=== PATIENT | male | born 1980 | race Caucasian/White ===

== ENCOUNTER 2018-12-28 17:05 | Emergency (ER) | payer SELFPAY ==
[~2018-12-28] VITALS: Ht 180.3 cm; Wt 95.0 kg
[2018-12-28] MEDS ORDERED: HYDROcodone/acetaminophen 5mg/325mg tablet PO ONE (17:40)
[2018-12-28] MEDS ORDERED: ondansetron 4mg rapidly disintigrating tab PO ONE (17:40)
[2018-12-28] MEDS ORDERED: normal saline 1000ml 1,000 ML IV ONE (17:40)
[2018-12-28] MEDS ORDERED: iohexol 300mg/ml 100ml inj. ONE (17:53)
--- NOTE | 2018-12-28 17:57 | NUR ---
pt to CT
--- NOTE | 2018-12-28 18:05 | NUR ---
pt back from [place]
[2018-12-28 18:10] VITALS: BP 148/90
[2018-12-28 18:15] LABS: BASOPHILS % (AUTO) 0.1 % (0-1); EOSINOPHILS # (AUTO) 0.1 X10'3 (0-0.9); EOSINOPHILS % (AUTO) 0.7 % (0-6); HEMATOCRIT 49.4 % (42.0-52.0); LYMPHOCYTES # (AUTO) 1.2 X10'3 (1.1-4.8); LYMPHOCYTES % (AUTO) 15.6 % (21-51); MEAN CORPUSCULAR HEMOGLOBIN 30.7 PG (27.0-31.0); MEAN CORPUSCULAR HGB CONC 34.4 g/dL (33.0-36.5); MEAN CORPUSCULAR VOLUME 89.4 FL (78-98); MEAN PLATELET VOLUME 8.1 FL (7.4-10.4); MONOCYTES # (AUTO) 0.4 X10'3 (0-0.9); MONOCYTES % (AUTO) 5.9 % (2-12); NEUTROPHILS # (AUTO) 5.8 X10'3 (1.8-7.7); NEUTROPHILS % (AUTO) 77.7 % (42-75); PLATELET COUNT 178 X10'3 (140-440); RED BLOOD COUNT 5.53 X10'6 (4.70-6.10); RED CELL DISTRIBUTION WIDTH 15.7 % (11.5-14.5); WHITE BLOOD COUNT 7.4 X10'3 (4.5-11.0)
[2018-12-28 18:19] LABS: ALANINE AMINOTRANSFERASE 47 U/L (12-78); ALBUMIN 4.2 G/DL (3.4-5.0); ALBUMIN/GLOBULIN RATIO 1.2 (1.1-1.5); ALKALINE PHOSPHATASE 46 IU/L (46-116); ANION GAP 7 (8-16); ASPARTATE AMINO TRANSFERASE 48 U/L (10-37); BILIRUBIN,TOTAL 0.7 MG/DL (0.1-1.0); BLOOD UREA NITROGEN 21 MG/DL (7-18); BUN/CREATININE RATIO 19.1 (5.4-32.0); CALCIUM 9.5 MG/DL (8.5-10.1); CHLORIDE 103 MMOL/L (99-107); GLUCOSE 102 MG/DL (70-104); SODIUM 141 MMOL/L (135-145); TOTAL CARBON DIOXIDE 31.4 MMOL/L (24-32); TOTAL PROTEIN 7.8 G/DL (6.4-8.2); eGFR 75 ML/MIN
[2018-12-28] MEDS ORDERED: TETanus/Pertussis (Acell)/Diphther VAC/PF (Tdap-Adult) 0.5ml syringe IM ONE (19:05)
[2018-12-28] MEDS ORDERED: bacitracin 15gm ointment TP ONE (19:05)
[2018-12-28] MEDS ORDERED: HYDR-3965 PO (19:09)
[2018-12-28] MEDS ORDERED: ketorolac trometh. 30mg/ml inj. IV ONE (19:10)
== END 2018-12-28 20:08 | disposition home or self-care (01) ==
LOC: ER 17:05
DX: S42.91XA Fracture of right shoulder girdle, part unspecified, initial encounter for closed fracture (principal); S61.211A Laceration without foreign body of left index finger without damage to nail, initial encounter; S61.213A Laceration without foreign body of left middle finger without damage to nail, initial encounter; S10.81XA Abrasion of other specified part of neck, initial encounter; S00.81XA Abrasion of other part of head, initial encounter; Z79.899 Other long term (current) drug therapy; W31.89XA Contact with other specified machinery, initial encounter; Y93.89 Activity, other specified; Y92.89 Other specified places as the place of occurrence of the external cause; Y99.8 Other external cause status
CPT/HCPCS: 36415; 71046; 71260; 73030; 80053; 85025; 90471; 90715; 96374; 99284; J1885; J7030; Q9967

== ENCOUNTER 2021-03-25 09:01 | Outpatient (CLI) | payer BC ==
[2021-03-25 10:37] LABS: ALANINE AMINOTRANSFERASE 51 U/L (12-78); ALBUMIN 3.8 G/DL (3.4-5.0); ALBUMIN/GLOBULIN RATIO 1.2 (1.1-1.5); ALKALINE PHOSPHATASE 48 IU/L (46-116); ANION GAP 8 (8-16); ASPARTATE AMINO TRANSFERASE 30 U/L (10-37); BILIRUBIN,TOTAL 0.5 MG/DL (0.1-1.0); BLOOD UREA NITROGEN 19 MG/DL (7-18); BUN/CREATININE RATIO 20.7 (5.4-32.0); CALCIUM 9.1 MG/DL (8.5-10.1); CHLORIDE 103 MMOL/L (99-107); CHOL/HDL RATIO 5.5 (0.00-4.99); CHOLESTEROL 169 MG/DL (0-200); CREATININE 0.92 MG/DL (0.60-1.10); GLUCOSE 114 MG/DL (70-104); HDL CHOLESTEROL 31 MG/DL (35-60); LDL CHOLESTEROL 80 MG/DL (50-100); POTASSIUM 4.1 MMOL/L (3.5-5.1); SODIUM 142 MMOL/L (135-145); TOTAL PROTEIN 6.9 G/DL (6.4-8.2); TRIGLYCERIDES 232 MG/DL (20-135); eGFR > 90 ML/MIN
== END 2021-03-25 23:59 | disposition home or self-care (01) ==
LOC: RAD 09:01
PROVIDERS: ATTEND Physician Assistant
DX: Z13.220 Encounter for screening for lipoid disorders (principal); M25.461 Effusion, right knee; R53.83 Other fatigue; Z83.3 Family history of diabetes mellitus
CPT/HCPCS: 36415; 73560; 80053; 80061; 84402; 84403

== ENCOUNTER 2021-04-22 08:45 | Outpatient (CLI) | payer BC | END 2021-04-22 23:59 | disposition home or self-care (01) | LOC: RAD 08:45 | PROVIDERS: ATTEND Physician Assistant | DX: S83.511A Sprain of anterior cruciate ligament of right knee, initial encounter (principal); S83.211A Bucket-handle tear of medial meniscus, current injury, right knee, initial encounter; M22.41 Chondromalacia patellae, right knee; M25.461 Effusion, right knee; X58.XXXA Exposure to other specified factors, initial encounter; Y93.89 Activity, other specified; Y92.89 Other specified places as the place of occurrence of the external cause; Y99.8 Other external cause status | CPT/HCPCS: 73721 ==

== ENCOUNTER 2021-05-17 21:59 | Emergency (ER) | payer BC ==
[~2021-05-17] VITALS: Ht 180.3 cm; Wt 97.7 kg
[2021-05-17 23:03] LABS: BASOPHILS % (AUTO) 0.3 % (0-1); HEMATOCRIT 44.7 % (42.0-52.0); HEMOGLOBIN 15.3 g/dl (14.0-17.9); LYMPHOCYTES # (AUTO) 1.3 X10'3 (1.1-4.8); LYMPHOCYTES % (AUTO) 51.5 % (21-51); MEAN CORPUSCULAR HEMOGLOBIN 31.3 PG (27.0-31.0); MEAN CORPUSCULAR HGB CONC 34.3 g/dL (33.0-36.5); MEAN CORPUSCULAR VOLUME 91.4 FL (78-98); MEAN PLATELET VOLUME 6.9 FL (7.4-10.4); MONOCYTES # (AUTO) 0.1 X10'3 (0-0.9); MONOCYTES % (AUTO) 5.6 % (2-12); NEUTROPHILS % (AUTO) 40.6 % (42-75); PLATELET COUNT 139 X10'3 (140-440); RED BLOOD COUNT 4.89 X10'6 (4.70-6.10); RED CELL DISTRIBUTION WIDTH 16.3 % (11.5-14.5); WHITE BLOOD COUNT 2.5 X10'3 (4.5-11.0)
[2021-05-17] MEDS ORDERED: iohexol 300mg/ml 100ml inj. ONE (23:20)
[2021-05-17 23:27] LABS: ALANINE AMINOTRANSFERASE 42 U/L (12-78); ALBUMIN 3.8 G/DL (3.4-5.0); ALBUMIN/GLOBULIN RATIO 1.1 (1.1-1.5); ALKALINE PHOSPHATASE 42 IU/L (46-116); ANION GAP 7 (8-16); ASPARTATE AMINO TRANSFERASE 27 U/L (10-37); BILIRUBIN,TOTAL 0.8 MG/DL (0.1-1.0); BLOOD UREA NITROGEN 19 MG/DL (7-18); BUN/CREATININE RATIO 20.4 (5.4-32.0); CALCIUM 8.7 MG/DL (8.5-10.1); CHLORIDE 101 MMOL/L (99-107); CREATININE 0.93 MG/DL (0.60-1.10); GLUCOSE 98 MG/DL (70-104); POTASSIUM 3.9 MMOL/L (3.5-5.1); SODIUM 139 MMOL/L (135-145); TOTAL PROTEIN 7.3 G/DL (6.4-8.2); eGFR 90 ML/MIN
[2021-05-18 00:51] VITALS: BP 128/78
== END 2021-05-18 00:54 | disposition home or self-care (01) ==
LOC: ER 22:00
DX: D61.818 Other pancytopenia (principal); M54.9 Dorsalgia, unspecified
CPT/HCPCS: 71045; 71260; 74177; 80053; 85025; 99285; Q9967

== ENCOUNTER 2021-05-22 11:39 | Outpatient (CLI) | payer BC | END 2021-05-22 23:59 | disposition home or self-care (01) | LOC: LAB 11:39 | PROVIDERS: ATTEND Physician Assistant | DX: E04.1 Nontoxic single thyroid nodule (principal); R53.83 Other fatigue | CPT/HCPCS: 36415; 84439; 84443 ==

== ENCOUNTER → 2021-05-25 | Outpatient (CLI) | payer BC | END | disposition home or self-care (01) | LOC: RAD 08:37 | PROVIDERS: ATTEND Physician Assistant | DX: M51.34 Other intervertebral disc degeneration, thoracic region (principal) | CPT/HCPCS: 72146 ==

== ENCOUNTER 2022-09-28 11:08 | Outpatient (CLI) | payer BC | END 2022-09-28 23:59 | disposition home or self-care (01) | LOC: RAD 11:08 | PROVIDERS: ATTEND Internal Medicine Hematology & Oncology | DX: D72.819 Decreased white blood cell count, unspecified (principal) | CPT/HCPCS: 76700 ==

== ENCOUNTER → 2023-04-28 | Outpatient (CLI) | payer BC ==
[2023-04-28 17:08] LABS: HEMOGLOBIN 14.4 g/dl (14.0-17.9); LYMPHOCYTES # (AUTO) 1.2 X10'3 (1.1-4.8); MONOCYTES # (AUTO) 0.3 X10'3 (0-0.9); NEUTROPHILS # (AUTO) 1.2 X10'3 (1.8-7.7); RED BLOOD COUNT 4.61 X10'6 (4.70-6.10); WHITE BLOOD COUNT 2.7 X10'3 (4.5-11.0)
[2023-04-28 17:10] LABS: BASOPHILS % (AUTO) 0.2 % (0-1); EOSINOPHILS % (AUTO) 0.5 % (0-6); HEMATOCRIT 43.2 % (42.0-52.0); LYMPHOCYTES % (AUTO) 45.9 % (21-51); MEAN CORPUSCULAR HEMOGLOBIN 31.1 PG (27.0-31.0); MEAN CORPUSCULAR HGB CONC 33.2 g/dL (33.0-36.5); MEAN CORPUSCULAR VOLUME 93.6 FL (78-98); MEAN PLATELET VOLUME 8.2 FL (7.4-10.4); MONOCYTES % (AUTO) 10.7 % (2-12); NEUTROPHILS % (AUTO) 42.7 % (42-75); PLATELET COUNT 62 X10'3 (140-440); RED CELL DISTRIBUTION WIDTH 19.4 % (11.5-14.5)
[2023-04-28 17:46] LABS: ALANINE AMINOTRANSFERASE 59 U/L (12-78); ALBUMIN 3.9 G/DL (3.4-5.0); ALBUMIN/GLOBULIN RATIO 1.1 (1.1-1.5); ALKALINE PHOSPHATASE 37 IU/L (46-116); ANION GAP 9 (8-16); ASPARTATE AMINO TRANSFERASE 48 U/L (10-37); BILIRUBIN,TOTAL 0.9 MG/DL (0.1-1.0); BLOOD UREA NITROGEN 16 MG/DL (7-18); BUN/CREATININE RATIO 14.8 (10.0-20.0); CALCIUM 7.9 MG/DL (8.5-10.1); CHLORIDE 103 MMOL/L (99-107); CREATININE 1.08 MG/DL (0.60-1.10); GLUCOSE 88 MG/DL (70-104); POTASSIUM 3.9 MMOL/L (3.5-5.1); SODIUM 140 MMOL/L (135-145); TOTAL CARBON DIOXIDE 28.2 MMOL/L (24-32); TOTAL PROTEIN 7.3 G/DL (6.4-8.2); URIC ACID 4.8 MG/DL (3.5-7.2); eGFR 75 ML/MIN
[2023-04-28 18:14] LABS: TOTAL CELLS COUNTED 100
[2023-04-28 18:19] LABS: ANISOCYTOSIS 2+; PLATELET ESTIMATE DECREASED; POLYCHROMASIA FEW
== END | disposition home or self-care (01) ==
LOC: LAB 15:49
PROVIDERS: ATTEND Internal Medicine Medical Oncology
DX: C91.40 Hairy cell leukemia not having achieved remission (principal)
CPT/HCPCS: 36415; 80053; 84550; 85007; 85025

== ENCOUNTER → 2023-06-09 | Day surgery (SDC) | payer BC ==
[2023-06-09 11:07] LABS: WHITE BLOOD COUNT 2.5 X10'3 (4.5-11.0)
[2023-06-09 11:09] LABS: BASOPHILS % (AUTO) 0.6 % (0-1); EOSINOPHILS % (AUTO) 0.4 % (0-6); HEMOGLOBIN 15.1 g/dl (14.0-17.9); LYMPHOCYTES % (AUTO) 41.6 % (21-51); MEAN CORPUSCULAR HEMOGLOBIN 30.6 PG (27.0-31.0); MEAN CORPUSCULAR VOLUME 92.7 FL (78-98); MEAN PLATELET VOLUME 7.3 FL (7.4-10.4); MONOCYTES # (AUTO) 0.3 X10'3 (0-0.9); MONOCYTES % (AUTO) 12.2 % (2-12); NEUTROPHILS # (AUTO) 1.1 X10'3 (1.8-7.7); NEUTROPHILS % (AUTO) 45.2 % (42-75); PLATELET COUNT 54 X10'3 (140-440); RED BLOOD COUNT 4.96 X10'6 (4.70-6.10); RED CELL DISTRIBUTION WIDTH 19.6 % (11.5-14.5)
[2023-06-09 11:33] LABS: ANISOCYTOSIS 2+; PLATELET ESTIMATE DECREASED; POLYCHROMASIA FEW; TOTAL CELLS COUNTED 100
[2023-06-09 11:35] LABS: ALANINE AMINOTRANSFERASE 50 U/L (12-78); ALBUMIN 3.8 G/DL (3.4-5.0); ALKALINE PHOSPHATASE 40 IU/L (46-116); ANION GAP 8 (8-16); ASPARTATE AMINO TRANSFERASE 40 U/L (10-37); BLOOD UREA NITROGEN 12 MG/DL (7-18); BUN/CREATININE RATIO 10.9 (10.0-20.0); CALCIUM 9.1 MG/DL (8.5-10.1); CHLORIDE 102 MMOL/L (99-107); GLUCOSE 120 MG/DL (70-104); POTASSIUM 4.5 MMOL/L (3.5-5.1); SODIUM 140 MMOL/L (135-145); TOTAL CARBON DIOXIDE 30.2 MMOL/L (24-32); TOTAL PROTEIN 7.6 G/DL (6.4-8.2); eGFR 74 ML/MIN
== END | disposition home or self-care (01) ==
LOC: SSTAY O 08:35
PROVIDERS: ATTEND Internal Medicine Medical Oncology
DX: C91.40 Hairy cell leukemia not having achieved remission (principal)
CPT/HCPCS: 36415; 36569; 36573; 76942; 80053; 85007; 85025

== ENCOUNTER → 2023-06-10 | Outpatient (CLI) | payer BC | END | disposition home or self-care (01) | LOC: LAB 16:14 | PROVIDERS: ATTEND Internal Medicine Medical Oncology | DX: Z11.59 Encounter for screening for other viral diseases (principal); C91.40 Hairy cell leukemia not having achieved remission; Z72.89 Other problems related to lifestyle | CPT/HCPCS: 36415; 84550; 86704; 86706; 87340; 87497 ==

== ENCOUNTER 2023-07-07 10:56 | Outpatient (CLI) | payer BC ==
[2023-07-07 11:15] LABS: BASOPHILS % (AUTO) 0.3 % (0-1); EOSINOPHILS % (AUTO) 0.9 % (0-6); HEMATOCRIT 39.3 % (42.0-52.0); LYMPHOCYTES # (AUTO) 0.5 X10'3 (1.1-4.8); LYMPHOCYTES % (AUTO) 35.6 % (21-51); MEAN CORPUSCULAR HEMOGLOBIN 31.5 PG (27.0-31.0); MEAN CORPUSCULAR HGB CONC 33.1 g/dL (33.0-36.5); MEAN CORPUSCULAR VOLUME 95.3 FL (78-98); MEAN PLATELET VOLUME 7.1 FL (7.4-10.4); MONOCYTES % (AUTO) 3.2 % (2-12); NEUTROPHILS # (AUTO) 0.8 X10'3 (1.8-7.7); PLATELET COUNT 95 X10'3 (140-440); RED BLOOD COUNT 4.12 X10'6 (4.70-6.10); RED CELL DISTRIBUTION WIDTH 20.5 % (11.5-14.5); WHITE BLOOD COUNT 1.3 X10'3 (4.5-11.0)
[2023-07-07 11:43] LABS: ANISOCYTOSIS 3+; NUCLEATED RED BLOOD CELLS 2 /100WBC (0-0); PLATELET ESTIMATE DECREASED; TOTAL CELLS COUNTED 100
[2023-07-07 11:51] LABS: ALANINE AMINOTRANSFERASE 74 U/L (12-78); ALBUMIN 3.7 G/DL (3.4-5.0); ALBUMIN/GLOBULIN RATIO 1.2 (1.1-1.5); ALKALINE PHOSPHATASE 43 IU/L (46-116); ANION GAP 7 (8-16); ASPARTATE AMINO TRANSFERASE 50 U/L (10-37); BILIRUBIN,TOTAL 0.8 MG/DL (0.1-1.0); BLOOD UREA NITROGEN 22 MG/DL (7-18); BUN/CREATININE RATIO 23.2 (10.0-20.0); CALCIUM 8.4 MG/DL (8.5-10.1); CHLORIDE 103 MMOL/L (99-107); CREATININE 0.95 MG/DL (0.60-1.10); GLUCOSE 100 MG/DL (70-104); POTASSIUM 4.4 MMOL/L (3.5-5.1); SODIUM 140 MMOL/L (135-145); TOTAL CARBON DIOXIDE 29.8 MMOL/L (24-32); TOTAL PROTEIN 6.7 G/DL (6.4-8.2); eGFR 87 ML/MIN
[2023-07-07 12:03] LABS: POLYCHROMASIA FEW; STOMATOCYTES FEW; TEAR DROP CELLS FEW
== END 2023-07-07 23:59 | disposition home or self-care (01) ==
LOC: LAB 10:56
PROVIDERS: ATTEND Internal Medicine
DX: C91.40 Hairy cell leukemia not having achieved remission (principal)
CPT/HCPCS: 36415; 80053; 85007; 85025

== ENCOUNTER 2023-07-15 17:06 | Emergency (ER) | payer BC ==
[2023-07-15 17:14] VITALS: BP 134/78; PULSE 74; RESP 18; O2SAT 98
[2023-07-15 18:27] LABS: ALANINE AMINOTRANSFERASE 70 U/L (12-78); ALBUMIN 3.8 G/DL (3.4-5.0); ALBUMIN/GLOBULIN RATIO 1.2 (1.1-1.5); ALKALINE PHOSPHATASE 40 IU/L (46-116); ANION GAP 6 (8-16); ASPARTATE AMINO TRANSFERASE 41 U/L (10-37); BILIRUBIN,TOTAL 0.8 MG/DL (0.1-1.0); BLOOD UREA NITROGEN 21 MG/DL (7-18); CALCIUM 8.5 MG/DL (8.5-10.1); CHLORIDE 103 MMOL/L (99-107); GLUCOSE 85 MG/DL (70-104); SODIUM 139 MMOL/L (135-145); TOTAL CARBON DIOXIDE 30.5 MMOL/L (24-32); TOTAL PROTEIN 7.1 G/DL (6.4-8.2); eGFR 82 ML/MIN
[2023-07-15 18:30] LABS: BASOPHILS % (AUTO) 0.7 % (0-1); EOSINOPHILS % (AUTO) 1.4 % (0-6); HEMOGLOBIN 13.3 g/dl (14.0-17.9); LYMPHOCYTES # (AUTO) 0.5 X10'3 (1.1-4.8); LYMPHOCYTES % (AUTO) 38.2 % (21-51); MEAN CORPUSCULAR HEMOGLOBIN 31.8 PG (27.0-31.0); MEAN CORPUSCULAR HGB CONC 33.2 g/dL (33.0-36.5); MEAN CORPUSCULAR VOLUME 95.9 FL (78-98); MEAN PLATELET VOLUME 7.2 FL (7.4-10.4); MONOCYTES # (AUTO) 0.1 X10'3 (0-0.9); MONOCYTES % (AUTO) 7.9 % (2-12); NEUTROPHILS # (AUTO) 0.7 X10'3 (1.8-7.7); NEUTROPHILS % (AUTO) 51.8 % (42-75); PLATELET COUNT 101 X10'3 (140-440); RED BLOOD COUNT 4.17 X10'6 (4.70-6.10); RED CELL DISTRIBUTION WIDTH 20.5 % (11.5-14.5); WHITE BLOOD COUNT 1.3 X10'3 (4.5-11.0)
[2023-07-15 20:51] LABS: PLATELET ESTIMATE DECREASED; TOTAL CELLS COUNTED 100
[2023-07-15 20:53] LABS: ANISOCYTOSIS 3+
[2023-07-15 20:56] LABS: POIKILOCYTOSIS 1+; POLYCHROMASIA FEW
[2023-07-15 20:57] LABS: ELLIPTOCYTES 1+; TEAR DROP CELLS FEW
== END 2023-07-15 20:10 | disposition home or self-care (01) ==
LOC: ER 17:06
DX: D61.818 Other pancytopenia (principal)
CPT/HCPCS: 36415; 80053; 85007; 85025; 99283

== ENCOUNTER 2023-07-22 10:52 | Outpatient (CLI) | payer BC ==
[2023-07-22 12:29] LABS: HEMOGLOBIN 14.4 g/dl (14.0-17.9); MEAN CORPUSCULAR VOLUME 97.1 FL (78-98)
[2023-07-22 12:31] LABS: BASOPHILS % (AUTO) 0.2 % (0-1); EOSINOPHILS % (AUTO) 1.4 % (0-6); LYMPHOCYTES # (AUTO) 0.4 X10'3 (1.1-4.8); LYMPHOCYTES % (AUTO) 20.6 % (21-51); MEAN CORPUSCULAR HEMOGLOBIN 31.9 PG (27.0-31.0); MEAN CORPUSCULAR HGB CONC 32.8 g/dL (33.0-36.5); MONOCYTES # (AUTO) 0.2 X10'3 (0-0.9); MONOCYTES % (AUTO) 11.6 % (2-12); NEUTROPHILS # (AUTO) 1.3 X10'3 (1.8-7.7); NEUTROPHILS % (AUTO) 66.2 % (42-75); PLATELET COUNT 111 X10'3 (140-440); RED BLOOD COUNT 4.53 X10'6 (4.70-6.10); RED CELL DISTRIBUTION WIDTH 20.4 % (11.5-14.5)
[2023-07-22 12:51] LABS: ALKALINE PHOSPHATASE 49 IU/L (46-116); ANION GAP 3 (8-16); BILIRUBIN,TOTAL 0.9 MG/DL (0.1-1.0); CHLORIDE 103 MMOL/L (99-107); SODIUM 139 MMOL/L (135-145); TOTAL CARBON DIOXIDE 32.7 MMOL/L (24-32); TOTAL PROTEIN 7.3 G/DL (6.4-8.2)
[2023-07-22 12:59] LABS: ALANINE AMINOTRANSFERASE 163 U/L (12-78); ALBUMIN 3.9 G/DL (3.4-5.0); ALBUMIN/GLOBULIN RATIO 1.1 (1.1-1.5); ASPARTATE AMINO TRANSFERASE 67 U/L (10-37); BLOOD UREA NITROGEN 18 MG/DL (7-18); BUN/CREATININE RATIO 18.8 (10.0-20.0); CALCIUM 8.6 MG/DL (8.5-10.1); CREATININE 0.96 MG/DL (0.60-1.10); GLUCOSE 88 MG/DL (70-104); eGFR 86 ML/MIN
[2023-07-22 13:29] LABS: TOTAL CELLS COUNTED 100
[2023-07-22 13:30] LABS: ANISOCYTOSIS 3+; ELLIPTOCYTES 1+; PLATELET ESTIMATE DECREASED; POIKILOCYTOSIS 1+; POLYCHROMASIA FEW; TEAR DROP CELLS FEW
[2023-07-22 13:31] LABS: STOMATOCYTES FEW
[2023-07-22 13:32] LABS: LYMPHOCYTES % (MANUAL) 23 % (21-51)
== END 2023-07-22 23:59 | disposition home or self-care (01) ==
LOC: LAB 10:52
PROVIDERS: ATTEND Internal Medicine
DX: C91.40 Hairy cell leukemia not having achieved remission (principal)
CPT/HCPCS: 80053; 85007; 85025

== ENCOUNTER → 2023-07-29 | Outpatient (CLI) | payer BC ==
[2023-07-29 09:05] LABS: BASOPHILS % (AUTO) 0.3 % (0-1); EOSINOPHILS % (AUTO) 1.2 % (0-6); HEMATOCRIT 45.5 % (42.0-52.0); HEMOGLOBIN 15.2 g/dl (14.0-17.9); LYMPHOCYTES # (AUTO) 0.4 X10'3 (1.1-4.8); LYMPHOCYTES % (AUTO) 15.1 % (21-51); MEAN CORPUSCULAR HEMOGLOBIN 31.8 PG (27.0-31.0); MEAN CORPUSCULAR HGB CONC 33.3 g/dL (33.0-36.5); MEAN CORPUSCULAR VOLUME 95.3 FL (78-98); MEAN PLATELET VOLUME 6.5 FL (7.4-10.4); MONOCYTES # (AUTO) 0.4 X10'3 (0-0.9); MONOCYTES % (AUTO) 12.8 % (2-12); NEUTROPHILS % (AUTO) 70.6 % (42-75); PLATELET COUNT 135 X10'3 (140-440); RED BLOOD COUNT 4.77 X10'6 (4.70-6.10); RED CELL DISTRIBUTION WIDTH 18.5 % (11.5-14.5); WHITE BLOOD COUNT 2.8 X10'3 (4.5-11.0)
[2023-07-29 09:20] LABS: ALANINE AMINOTRANSFERASE 78 U/L (12-78); ALBUMIN 3.7 G/DL (3.4-5.0); ALBUMIN/GLOBULIN RATIO 1.1 (1.1-1.5); ALKALINE PHOSPHATASE 46 IU/L (46-116); ANION GAP 3 (8-16); ASPARTATE AMINO TRANSFERASE 40 U/L (10-37); BILIRUBIN,TOTAL 1.3 MG/DL (0.1-1.0); BLOOD UREA NITROGEN 18 MG/DL (7-18); BUN/CREATININE RATIO 15.8 (10.0-20.0); CALCIUM 8.7 MG/DL (8.5-10.1); CHLORIDE 104 MMOL/L (99-107); CREATININE 1.14 MG/DL (0.60-1.10); GLUCOSE 91 MG/DL (70-104); POTASSIUM 3.9 MMOL/L (3.5-5.1); SODIUM 139 MMOL/L (135-145); TOTAL CARBON DIOXIDE 32.4 MMOL/L (24-32); TOTAL PROTEIN 7.1 G/DL (6.4-8.2); eGFR 71 ML/MIN
[2023-07-29 09:25] LABS: ANISOCYTOSIS 2+; ELLIPTOCYTES FEW; PLATELET ESTIMATE DECREASED; TEAR DROP CELLS FEW; TOTAL CELLS COUNTED 100
== END | disposition home or self-care (01) ==
LOC: LAB 08:34
PROVIDERS: ATTEND Internal Medicine Medical Oncology
DX: C91.40 Hairy cell leukemia not having achieved remission (principal)
CPT/HCPCS: 80053; 85007; 85025

== ENCOUNTER 2023-08-05 08:24 | Outpatient (CLI) | payer BC ==
[2023-08-05 08:59] LABS: BASOPHILS % (AUTO) 0.3 % (0-1); EOSINOPHILS # (AUTO) 0.1 X10'3 (0-0.9); EOSINOPHILS % (AUTO) 1.7 % (0-6); HEMOGLOBIN 15.1 g/dl (14.0-17.9); LYMPHOCYTES # (AUTO) 0.5 X10'3 (1.1-4.8); LYMPHOCYTES % (AUTO) 15.7 % (21-51); MEAN CORPUSCULAR HEMOGLOBIN 31.4 PG (27.0-31.0); MEAN CORPUSCULAR HGB CONC 32.9 g/dL (33.0-36.5); MEAN CORPUSCULAR VOLUME 95.6 FL (78-98); MEAN PLATELET VOLUME 7.3 FL (7.4-10.4); MONOCYTES # (AUTO) 0.4 X10'3 (0-0.9); NEUTROPHILS # (AUTO) 2.1 X10'3 (1.8-7.7); NEUTROPHILS % (AUTO) 70.3 % (42-75); PLATELET COUNT 159 X10'3 (140-440); RED BLOOD COUNT 4.82 X10'6 (4.70-6.10); RED CELL DISTRIBUTION WIDTH 18.1 % (11.5-14.5); WHITE BLOOD COUNT 2.9 X10'3 (4.5-11.0)
[2023-08-05 09:12] LABS: ALANINE AMINOTRANSFERASE 64 U/L (12-78); ALBUMIN 3.7 G/DL (3.4-5.0); ALBUMIN/GLOBULIN RATIO 1.1 (1.1-1.5); ALKALINE PHOSPHATASE 44 IU/L (46-116); ANION GAP 5 (8-16); ASPARTATE AMINO TRANSFERASE 39 U/L (10-37); BILIRUBIN,TOTAL 0.5 MG/DL (0.1-1.0); CHLORIDE 102 MMOL/L (99-107); CREATININE 0.93 MG/DL (0.60-1.10); GLUCOSE 103 MG/DL (70-104); SODIUM 137 MMOL/L (135-145); TOTAL CARBON DIOXIDE 29.9 MMOL/L (24-32); TOTAL PROTEIN 7.2 G/DL (6.4-8.2); eGFR 90 ML/MIN
[2023-08-05 09:24] LABS: BLOOD UREA NITROGEN 18 MG/DL (7-18); BUN/CREATININE RATIO 19.4 (10.0-20.0)
[2023-08-05 11:50] LABS: TOTAL CELLS COUNTED 100
[2023-08-05 11:51] LABS: ANISOCYTOSIS 2+; ELLIPTOCYTES FEW; PLATELET ESTIMATE NORMAL; TEAR DROP CELLS FEW
== END 2023-08-05 23:59 | disposition home or self-care (01) ==
LOC: LAB 08:24
PROVIDERS: ATTEND Internal Medicine Hematology & Oncology
DX: C91.40 Hairy cell leukemia not having achieved remission (principal)
CPT/HCPCS: 80053; 85007; 85025

== ENCOUNTER → 2023-08-12 | Outpatient (CLI) | payer BC ==
[2023-08-12 09:18] LABS: BASOPHILS % (AUTO) 0.1 % (0-1); HEMOGLOBIN 15.9 g/dl (14.0-17.9); LYMPHOCYTES # (AUTO) 0.4 X10'3 (1.1-4.8); LYMPHOCYTES % (AUTO) 9.9 % (21-51); MEAN CORPUSCULAR HEMOGLOBIN 31.6 PG (27.0-31.0); MEAN CORPUSCULAR HGB CONC 33.2 g/dL (33.0-36.5); MEAN CORPUSCULAR VOLUME 95.3 FL (78-98); MEAN PLATELET VOLUME 7.2 FL (7.4-10.4); MONOCYTES # (AUTO) 0.4 X10'3 (0-0.9); MONOCYTES % (AUTO) 9.4 % (2-12); NEUTROPHILS # (AUTO) 3.6 X10'3 (1.8-7.7); NEUTROPHILS % (AUTO) 79.6 % (42-75); PLATELET COUNT 134 X10'3 (140-440); RED BLOOD COUNT 5.04 X10'6 (4.70-6.10); WHITE BLOOD COUNT 4.5 X10'3 (4.5-11.0)
[2023-08-12 09:41] LABS: ALANINE AMINOTRANSFERASE 40 U/L (12-78); ALBUMIN 3.6 G/DL (3.4-5.0); ALBUMIN/GLOBULIN RATIO 1.1 (1.1-1.5); ALKALINE PHOSPHATASE 43 IU/L (46-116); ANION GAP 8 (8-16); ASPARTATE AMINO TRANSFERASE 26 U/L (10-37); BILIRUBIN,TOTAL 0.7 MG/DL (0.1-1.0); BLOOD UREA NITROGEN 16 MG/DL (7-18); BUN/CREATININE RATIO 14.7 (10.0-20.0); CALCIUM 8.6 MG/DL (8.5-10.1); CHLORIDE 104 MMOL/L (99-107); CREATININE 1.09 MG/DL (0.60-1.10); GLUCOSE 157 MG/DL (70-104); POTASSIUM 3.7 MMOL/L (3.5-5.1); SODIUM 140 MMOL/L (135-145); TOTAL CARBON DIOXIDE 28.3 MMOL/L (24-32); eGFR 75 ML/MIN
== END | disposition home or self-care (01) ==
LOC: LAB 08:21
PROVIDERS: ATTEND Internal Medicine Hematology & Oncology
DX: C91.40 Hairy cell leukemia not having achieved remission (principal)
CPT/HCPCS: 36415; 80053; 85025

== ENCOUNTER → 2023-08-19 | Outpatient (CLI) | payer BC ==
[2023-08-19 08:52] LABS: BASOPHILS % (AUTO) 1.2 % (0-1); EOSINOPHILS # (AUTO) 0.2 X10'3 (0-0.9); EOSINOPHILS % (AUTO) 4.7 % (0-6); HEMATOCRIT 47.7 % (42.0-52.0); HEMOGLOBIN 15.8 g/dl (14.0-17.9); LYMPHOCYTES # (AUTO) 0.4 X10'3 (1.1-4.8); LYMPHOCYTES % (AUTO) 10.7 % (21-51); MEAN CORPUSCULAR HEMOGLOBIN 31.2 PG (27.0-31.0); MEAN CORPUSCULAR HGB CONC 33.2 g/dL (33.0-36.5); MEAN CORPUSCULAR VOLUME 94.1 FL (78-98); MEAN PLATELET VOLUME 6.9 FL (7.4-10.4); MONOCYTES # (AUTO) 0.6 X10'3 (0-0.9); MONOCYTES % (AUTO) 14.7 % (2-12); NEUTROPHILS # (AUTO) 2.7 X10'3 (1.8-7.7); NEUTROPHILS % (AUTO) 68.7 % (42-75); PLATELET COUNT 137 X10'3 (140-440); RED BLOOD COUNT 5.07 X10'6 (4.70-6.10); RED CELL DISTRIBUTION WIDTH 16.5 % (11.5-14.5); WHITE BLOOD COUNT 3.9 X10'3 (4.5-11.0)
[2023-08-19 09:04] LABS: ALANINE AMINOTRANSFERASE 54 U/L (12-78); ALBUMIN 3.7 G/DL (3.4-5.0); ALKALINE PHOSPHATASE 49 IU/L (46-116); ANION GAP 9 (8-16); ASPARTATE AMINO TRANSFERASE 59 U/L (10-37); BILIRUBIN,TOTAL 0.6 MG/DL (0.1-1.0); BLOOD UREA NITROGEN 20 MG/DL (7-18); BUN/CREATININE RATIO 19.2 (10.0-20.0); CALCIUM 8.8 MG/DL (8.5-10.1); CHLORIDE 101 MMOL/L (99-107); CREATININE 1.04 MG/DL (0.60-1.10); GLUCOSE 124 MG/DL (70-104); POTASSIUM 3.6 MMOL/L (3.5-5.1); SODIUM 139 MMOL/L (135-145); TOTAL CARBON DIOXIDE 29.5 MMOL/L (24-32); TOTAL PROTEIN 7.5 G/DL (6.4-8.2); eGFR 79 ML/MIN
== END | disposition home or self-care (01) ==
LOC: LAB 08:28
PROVIDERS: ATTEND Internal Medicine Hematology & Oncology
DX: C91.40 Hairy cell leukemia not having achieved remission (principal)
CPT/HCPCS: 36415; 80053; 85025

== ENCOUNTER → 2023-08-26 | Outpatient (CLI) | payer BC ==
[2023-08-26 09:21] LABS: BASOPHILS % (AUTO) 0.6 % (0-1); EOSINOPHILS # (AUTO) 0.1 X10'3 (0-0.9); EOSINOPHILS % (AUTO) 2.5 % (0-6); HEMATOCRIT 49.4 % (42.0-52.0); HEMOGLOBIN 16.4 g/dl (14.0-17.9); LYMPHOCYTES # (AUTO) 0.5 X10'3 (1.1-4.8); LYMPHOCYTES % (AUTO) 16.6 % (21-51); MEAN CORPUSCULAR HEMOGLOBIN 31.1 PG (27.0-31.0); MEAN CORPUSCULAR HGB CONC 33.3 g/dL (33.0-36.5); MEAN CORPUSCULAR VOLUME 93.6 FL (78-98); MEAN PLATELET VOLUME 7.4 FL (7.4-10.4); MONOCYTES # (AUTO) 0.3 X10'3 (0-0.9); MONOCYTES % (AUTO) 10.4 % (2-12); NEUTROPHILS % (AUTO) 69.9 % (42-75); PLATELET COUNT 134 X10'3 (140-440); RED BLOOD COUNT 5.28 X10'6 (4.70-6.10); RED CELL DISTRIBUTION WIDTH 15.8 % (11.5-14.5); WHITE BLOOD COUNT 2.9 X10'3 (4.5-11.0)
[2023-08-26 09:39] LABS: ALANINE AMINOTRANSFERASE 48 U/L (12-78); ALBUMIN 3.7 G/DL (3.4-5.0); ALBUMIN/GLOBULIN RATIO 1.1 (1.1-1.5); ALKALINE PHOSPHATASE 53 IU/L (46-116); ANION GAP 7 (8-16); ASPARTATE AMINO TRANSFERASE 31 U/L (10-37); BILIRUBIN,TOTAL 0.6 MG/DL (0.1-1.0); BLOOD UREA NITROGEN 19 MG/DL (7-18); BUN/CREATININE RATIO 17.9 (10.0-20.0); CALCIUM 8.6 MG/DL (8.5-10.1); CHLORIDE 103 MMOL/L (99-107); CREATININE 1.06 MG/DL (0.60-1.10); GLUCOSE 148 MG/DL (70-104); LACTATE DEHYDROGENASE 202 U/L (85-227); POTASSIUM 4.2 MMOL/L (3.5-5.1); SODIUM 139 MMOL/L (135-145); TOTAL CARBON DIOXIDE 28.8 MMOL/L (24-32); TOTAL PROTEIN 7.2 G/DL (6.4-8.2); eGFR 77 ML/MIN
[2023-08-26 09:43] LABS: ANISOCYTOSIS FEW; PLATELET ESTIMATE DECREASED; TOTAL CELLS COUNTED 100
== END | disposition home or self-care (01) ==
LOC: LAB 08:48
PROVIDERS: ATTEND Physician Assistant Medical
DX: C91.40 Hairy cell leukemia not having achieved remission (principal)
CPT/HCPCS: 80053; 83615; 85007; 85025

== ENCOUNTER → 2023-09-02 | Outpatient (CLI) | payer BC ==
[2023-09-02 10:02] LABS: BASOPHILS % (AUTO) 0.5 % (0-1); EOSINOPHILS # (AUTO) 0.1 X10'3 (0-0.9); HEMATOCRIT 51.4 % (42.0-52.0); HEMOGLOBIN 16.8 g/dl (14.0-17.9); LYMPHOCYTES # (AUTO) 0.4 X10'3 (1.1-4.8); MEAN CORPUSCULAR HGB CONC 32.8 g/dL (33.0-36.5); MEAN CORPUSCULAR VOLUME 94.5 FL (78-98); MEAN PLATELET VOLUME 7.4 FL (7.4-10.4); MONOCYTES # (AUTO) 0.2 X10'3 (0-0.9); MONOCYTES % (AUTO) 8.6 % (2-12); NEUTROPHILS # (AUTO) 1.8 X10'3 (1.8-7.7); NEUTROPHILS % (AUTO) 70.9 % (42-75); PLATELET COUNT 115 X10'3 (140-440); RED BLOOD COUNT 5.43 X10'6 (4.70-6.10); RED CELL DISTRIBUTION WIDTH 15.3 % (11.5-14.5); WHITE BLOOD COUNT 2.6 X10'3 (4.5-11.0)
[2023-09-02 10:17] LABS: ALANINE AMINOTRANSFERASE 47 U/L (12-78); ALBUMIN 3.7 G/DL (3.4-5.0); ALBUMIN/GLOBULIN RATIO 1.1 (1.1-1.5); ALKALINE PHOSPHATASE 55 IU/L (46-116); ANION GAP 2 (8-16); ASPARTATE AMINO TRANSFERASE 30 U/L (10-37); BILIRUBIN,TOTAL 0.6 MG/DL (0.1-1.0); BLOOD UREA NITROGEN 14 MG/DL (7-18); BUN/CREATININE RATIO 12.2 (10.0-20.0); CALCIUM 9.1 MG/DL (8.5-10.1); CHLORIDE 104 MMOL/L (99-107); CREATININE 1.15 MG/DL (0.60-1.10); GLUCOSE 145 MG/DL (70-104); LACTATE DEHYDROGENASE 180 U/L (85-227); POTASSIUM 4.3 MMOL/L (3.5-5.1); SODIUM 140 MMOL/L (135-145); TOTAL CARBON DIOXIDE 33.6 MMOL/L (24-32); TOTAL PROTEIN 7.1 G/DL (6.4-8.2); eGFR 70 ML/MIN
[2023-09-02 12:31] LABS: PLATELET ESTIMATE DECREASED; TOTAL CELLS COUNTED 100
[2023-09-02 12:32] LABS: ELLIPTOCYTES FEW
== END | disposition home or self-care (01) ==
LOC: LAB 09:22
PROVIDERS: ATTEND Internal Medicine Hematology & Oncology
DX: C91.40 Hairy cell leukemia not having achieved remission (principal)
CPT/HCPCS: 36415; 80053; 83615; 85007; 85025

== ENCOUNTER → 2023-09-30 | Outpatient (CLI) | payer BC | END | disposition home or self-care (01) | LOC: RAD 07:42 | PROVIDERS: ATTEND Internal Medicine Hematology & Oncology | DX: C91.40 Hairy cell leukemia not having achieved remission (principal); D73.89 Other diseases of spleen | CPT/HCPCS: 76705 ==

== ENCOUNTER 2023-11-09 08:49 | Outpatient (CLI) | payer BC ==
[2023-11-09 09:18] LABS: BASOPHILS % (AUTO) 0.6 % (0-1); EOSINOPHILS # (AUTO) 0.1 X10'3 (0-0.9); EOSINOPHILS % (AUTO) 3.3 % (0-6); HEMATOCRIT 55.1 % (42.0-52.0); LYMPHOCYTES # (AUTO) 0.6 X10'3 (1.1-4.8); LYMPHOCYTES % (AUTO) 24.4 % (21-51); MEAN CORPUSCULAR HGB CONC 33.8 g/dL (33.0-36.5); MEAN CORPUSCULAR VOLUME 88.7 FL (78-98); MEAN PLATELET VOLUME 8.1 FL (7.4-10.4); MONOCYTES # (AUTO) 0.3 X10'3 (0-0.9); MONOCYTES % (AUTO) 14.8 % (2-12); NEUTROPHILS # (AUTO) 1.3 X10'3 (1.8-7.7); NEUTROPHILS % (AUTO) 56.9 % (42-75); PLATELET COUNT 111 X10'3 (140-440); RED BLOOD COUNT 6.21 X10'6 (4.70-6.10); RED CELL DISTRIBUTION WIDTH 15.7 % (11.5-14.5); WHITE BLOOD COUNT 2.3 X10'3 (4.5-11.0)
[2023-11-09 09:24] LABS: HEMOGLOBIN 18.6 g/dl (14.0-17.9)
[2023-11-09 09:26] LABS: ALANINE AMINOTRANSFERASE 34 U/L (12-78); ALBUMIN 3.8 G/DL (3.4-5.0); ALBUMIN/GLOBULIN RATIO 1.1 (1.1-1.5); ALKALINE PHOSPHATASE 60 IU/L (46-116); ANION GAP 3 (8-16); ASPARTATE AMINO TRANSFERASE 32 U/L (10-37); BILIRUBIN,TOTAL 0.9 MG/DL (0.1-1.0); BLOOD UREA NITROGEN 20 MG/DL (7-18); BUN/CREATININE RATIO 17.5 (10.0-20.0); CALCIUM 9.4 MG/DL (8.5-10.1); CHLORIDE 106 MMOL/L (99-107); CREATININE 1.14 MG/DL (0.60-1.10); GLUCOSE 89 MG/DL (70-104); POTASSIUM 4.6 MMOL/L (3.5-5.1); SODIUM 142 MMOL/L (135-145); TOTAL CARBON DIOXIDE 33.1 MMOL/L (24-32); TOTAL PROTEIN 7.3 G/DL (6.4-8.2); eGFR 70 ML/MIN
[2023-11-09 09:34] LABS: TOTAL CELLS COUNTED 100
[2023-11-09 09:35] LABS: PLATELET ESTIMATE DECREASED; STOMATOCYTES FEW
[2023-11-11 06:11] LABS: ESTRADIOL 10.4 pg/mL (7.6-42.6); TESTOSTERONE, SERUM 1256 ng/dL (264-916)
== END 2023-11-09 23:59 | disposition home or self-care (01) ==
LOC: LAB 08:49
PROVIDERS: ATTEND Internal Medicine Hematology & Oncology
DX: C91.40 Hairy cell leukemia not having achieved remission (principal)
CPT/HCPCS: 36415; 80053; 82670; 84402; 84403; 85007; 85025

== ENCOUNTER 2024-01-06 14:59 | Outpatient (CLI) | payer BC ==
[2024-01-06 15:57] LABS: BASOPHILS % (AUTO) 0.2 % (0-1); EOSINOPHILS # (AUTO) 0.1 X10'3 (0-0.9); EOSINOPHILS % (AUTO) 2.9 % (0-6); HEMATOCRIT 52.7 % (42.0-52.0); HEMOGLOBIN 17.8 g/dl (14.0-17.9); LYMPHOCYTES # (AUTO) 0.8 X10'3 (1.1-4.8); LYMPHOCYTES % (AUTO) 21.5 % (21-51); MEAN CORPUSCULAR HEMOGLOBIN 30.1 PG (27.0-31.0); MEAN CORPUSCULAR HGB CONC 33.7 g/dL (33.0-36.5); MEAN CORPUSCULAR VOLUME 89.4 FL (78-98); MONOCYTES # (AUTO) 0.3 X10'3 (0-0.9); MONOCYTES % (AUTO) 8.9 % (2-12); NEUTROPHILS # (AUTO) 2.5 X10'3 (1.8-7.7); NEUTROPHILS % (AUTO) 66.5 % (42-75); PLATELET COUNT 139 X10'3 (140-440); RED CELL DISTRIBUTION WIDTH 15.7 % (11.5-14.5); WHITE BLOOD COUNT 3.8 X10'3 (4.5-11.0)
== END 2024-01-06 23:59 | disposition home or self-care (01) ==
LOC: RAD 14:59
PROVIDERS: ATTEND Internal Medicine Hematology & Oncology
DX: C91.40 Hairy cell leukemia not having achieved remission (principal)
CPT/HCPCS: 36415; 85025

== ENCOUNTER 2024-04-17 13:50 | Outpatient (CLI) | payer BC ==
[2024-04-17 15:13] LABS: CHOL/HDL RATIO 3.2 (0.00-4.99); CHOLESTEROL 192 MG/DL (0-200); HDL CHOLESTEROL 60 MG/DL (35-60); LDL CHOLESTEROL 100 MG/DL (50-100); TRIGLYCERIDES 114 MG/DL (20-135)
[2024-04-17 16:51] LABS: HEMOGLOBIN A1C 5.2 % (4.5-6.2)
== END 2024-04-17 23:59 | disposition home or self-care (01) ==
LOC: LAB 13:50
PROVIDERS: ATTEND Family Medicine
DX: C91.40 Hairy cell leukemia not having achieved remission (principal)
CPT/HCPCS: 36415; 80061; 82306; 82607; 82746; 83036; 84153; 84154

== ENCOUNTER 2024-04-19 09:00 | Outpatient (CLI) | payer BC ==
[2024-04-17 15:14] LABS: ALANINE AMINOTRANSFERASE 34 U/L (12-78); ALBUMIN 3.8 G/DL (3.4-5.0); ALBUMIN/GLOBULIN RATIO 1.1 (1.1-1.5); ALKALINE PHOSPHATASE 60 IU/L (46-116); ANION GAP 6 (8-16); ASPARTATE AMINO TRANSFERASE 40 U/L (10-37); BLOOD UREA NITROGEN 19 MG/DL (7-18); BUN/CREATININE RATIO 24.1 (10.0-20.0); CALCIUM 8.8 MG/DL (8.5-10.1); CHLORIDE 104 MMOL/L (99-107); CREATININE 0.79 MG/DL (0.60-1.10); GLUCOSE 93 MG/DL (70-104); SODIUM 140 MMOL/L (135-145); TOTAL CARBON DIOXIDE 30.3 MMOL/L (24-32); TOTAL PROTEIN 7.2 G/DL (6.4-8.2); eGFR > 90 ML/MIN
[2024-04-17 15:51] LABS: BASOPHILS % (AUTO) 0.3 % (0-1); EOSINOPHILS # (AUTO) 0.1 X10'3 (0-0.9); EOSINOPHILS % (AUTO) 1.2 % (0-6); HEMATOCRIT 53.7 % (42.0-52.0); LYMPHOCYTES # (AUTO) 0.6 X10'3 (1.1-4.8); MEAN CORPUSCULAR HGB CONC 34.2 g/dL (33.0-36.5); MEAN CORPUSCULAR VOLUME 90.8 FL (78-98); MEAN PLATELET VOLUME 7.7 FL (7.4-10.4); MONOCYTES # (AUTO) 0.5 X10'3 (0-0.9); MONOCYTES % (AUTO) 9.9 % (2-12); NEUTROPHILS # (AUTO) 3.6 X10'3 (1.8-7.7); NEUTROPHILS % (AUTO) 75.6 % (42-75); PLATELET COUNT 155 X10'3 (140-440); RED BLOOD COUNT 5.91 X10'6 (4.70-6.10); RED CELL DISTRIBUTION WIDTH 14.6 % (11.5-14.5); WHITE BLOOD COUNT 4.8 X10'3 (4.5-11.0)
[2024-04-17 16:13] LABS: HEMOGLOBIN 18.4 g/dl (14.0-17.9)
[~2024-04-19 09:00] MED LIST: iohexol 300mg/ml 100ml inj. ONE
[2024-04-19 14:16] LABS: TESTOSTERONE, SERUM 739 ng/dL (264-916)
== END 2024-04-19 23:59 | disposition home or self-care (01) ==
LOC: RAD 09:00
PROVIDERS: ATTEND Internal Medicine Hematology & Oncology
DX: C91.40 Hairy cell leukemia not having achieved remission (principal)
CPT/HCPCS: 36415; 74178; 80053; 84402; 84403; 85025; Q9967

== ENCOUNTER 2024-06-27 08:27 | Outpatient (CLI) | payer BC ==
[2024-06-27 09:13] LABS: BASOPHILS % (AUTO) 0.1 % (0-1); EOSINOPHILS # (AUTO) 0.1 X10'3 (0-0.9); EOSINOPHILS % (AUTO) 1.9 % (0-6); HEMATOCRIT 55.4 % (42.0-52.0); LYMPHOCYTES # (AUTO) 0.7 X10'3 (1.1-4.8); LYMPHOCYTES % (AUTO) 24.8 % (21-51); MEAN CORPUSCULAR HEMOGLOBIN 30.6 PG (27.0-31.0); MEAN CORPUSCULAR HGB CONC 34.5 g/dL (33.0-36.5); MEAN CORPUSCULAR VOLUME 88.7 FL (78-98); MEAN PLATELET VOLUME 7.7 FL (7.4-10.4); MONOCYTES # (AUTO) 0.3 X10'3 (0-0.9); MONOCYTES % (AUTO) 11.6 % (2-12); NEUTROPHILS # (AUTO) 1.7 X10'3 (1.8-7.7); NEUTROPHILS % (AUTO) 61.6 % (42-75); PLATELET COUNT 133 X10'3 (140-440); RED BLOOD COUNT 6.25 X10'6 (4.70-6.10); RED CELL DISTRIBUTION WIDTH 14.5 % (11.5-14.5); WHITE BLOOD COUNT 2.8 X10'3 (4.5-11.0)
[2024-06-27 09:17] LABS: ALANINE AMINOTRANSFERASE 39 U/L (12-78); ALBUMIN 3.7 G/DL (3.4-5.0); ALBUMIN/GLOBULIN RATIO 1.1 (1.1-1.5); ALKALINE PHOSPHATASE 81 IU/L (46-116); ANION GAP 4 (8-16); ASPARTATE AMINO TRANSFERASE 24 U/L (10-37); BILIRUBIN,TOTAL 0.8 MG/DL (0.1-1.0); BLOOD UREA NITROGEN 20 MG/DL (7-18); BUN/CREATININE RATIO 20.6 (10.0-20.0); CALCIUM 9.2 MG/DL (8.5-10.1); CHLORIDE 103 MMOL/L (99-107); CREATININE 0.97 MG/DL (0.60-1.10); GLUCOSE 97 MG/DL (70-104); POTASSIUM 4.4 MMOL/L (3.5-5.1); SODIUM 141 MMOL/L (135-145); TOTAL CARBON DIOXIDE 33.6 MMOL/L (24-32); eGFR 85 ML/MIN
[2024-06-27 09:47] LABS: HEMOGLOBIN 19.1 g/dl (14.0-17.9)
[2024-06-27 10:12] LABS: PLATELET ESTIMATE DECREASED; TOTAL CELLS COUNTED 100
[2024-06-28 08:16] LABS: TESTOSTERONE, SERUM 291 ng/dL (264-916)
== END 2024-06-27 23:59 | disposition home or self-care (01) ==
LOC: RAD 08:27
PROVIDERS: ATTEND Internal Medicine Hematology & Oncology
DX: C91.40 Hairy cell leukemia not having achieved remission (principal)
CPT/HCPCS: 36415; 80053; 84402; 84403; 85007; 85025

== ENCOUNTER 2024-10-01 11:07 | Outpatient (CLI) | payer BC ==
[2024-10-01 11:50] LABS: MEAN PLATELET VOLUME 8.0 FL (7.4-10.4); RED CELL DISTRIBUTION WIDTH 14.6 % (11.5-14.5)
[2024-10-01 12:04] LABS: CREATININE 0.83 MG/DL (0.60-1.10); TOTAL CARBON DIOXIDE 30.5 MMOL/L (24-32); eGFR > 90 ML/MIN
== END 2024-10-01 23:59 | disposition home or self-care (01) ==
LOC: LAB 11:07
PROVIDERS: ATTEND Internal Medicine Hematology & Oncology
DX: C91.40 Hairy cell leukemia not having achieved remission (principal)
CPT/HCPCS: 36415; 80053; 85025

== ENCOUNTER 2024-10-01 11:11 | Outpatient (CLI) | payer BC ==
[2024-10-02 08:12] LABS: TESTOSTERONE, SERUM 442 ng/dL (264-916)
== END 2024-10-01 23:59 | disposition home or self-care (01) ==
LOC: LAB 11:11
PROVIDERS: ATTEND Internal Medicine
DX: C91.40 Hairy cell leukemia not having achieved remission (principal)
CPT/HCPCS: 36415; 84402; 84403

== ENCOUNTER 2025-01-03 08:54 | Outpatient (CLI) | payer BC ==
[2025-01-03 09:20] LABS: MEAN PLATELET VOLUME 8.0 FL (7.4-10.4); RED CELL DISTRIBUTION WIDTH 14.0 % (11.5-14.5)
[2025-01-03 09:53] LABS: LYMPHOCYTES % (MANUAL) 28.0 % (21-51); MONOCYTES % (MANUAL) 8.0 % (2-12); NEUTROPHILS % (MANUAL) 64.0 % (42-75); PLATELET ESTIMATE DECREASED
== END 2025-01-03 23:59 | disposition home or self-care (01) ==
LOC: LAB 08:54
PROVIDERS: ATTEND Internal Medicine
DX: C91.40 Hairy cell leukemia not having achieved remission (principal)
CPT/HCPCS: 36415; 85007; 85025

== ENCOUNTER 2025-02-12 09:25 | Outpatient (CLI) | payer BC ==
[2025-02-12 09:56] LABS: MEAN PLATELET VOLUME 7.3 FL (7.4-10.4); RED CELL DISTRIBUTION WIDTH 14.4 % (11.5-14.5)
[2025-02-12 10:17] LABS: CREATININE 0.97 MG/DL (0.60-1.10); TOTAL CARBON DIOXIDE 35.0 MMOL/L (24-32); eGFR 84 ML/MIN
[2025-02-13 11:16] LABS: ESTRADIOL 18.0 pg/mL (7.6-42.6); TESTOSTERONE, SERUM 480 ng/dL (264-916)
== END 2025-02-12 23:59 | disposition home or self-care (01) ==
LOC: LAB 09:25
PROVIDERS: ATTEND Internal Medicine
DX: C91.40 Hairy cell leukemia not having achieved remission (principal)
CPT/HCPCS: 36415; 80053; 82670; 84402; 84403; 85025